=== PATIENT | female | born 1985 | race Hispanic/Latino ===

== ENCOUNTER 2024-03-09 09:02 | Emergency (ER) | payer SELFPAY ==
[2024-03-09 09:09] VITALS: BP 130/91
[2024-03-09 09:24] VITALS: BP 129/84
--- NOTE | 2024-03-09 09:25 | ED.GENMED ---
History of Present Illness
<Yissel Freeman PA-C - Last Filed: 03/09/24 11:43>
General
Chief Complaint: Fainting/Passed Out
Source: patient
Exam Limitations: none
Time Seen by Provider: 03/09/24 09:22
Nursing documentation reviewed up to this point in time: agreed with
Travel History
Have you had any contact with someone who has COVID-19?: No
Do you have any symptoms of coronavirus? Fever > 100 degrees, chills, cough, shortness of breath, sore throat, loss of taste or smell, muscle aches, or headache?: No
History of Present Illness
History of Present Illness:
38-year-old female with no apparent past medical history presents emergency department today via EMS after falling at work today. EMS reports that patient was at work today when she fell and apparently passed out for 30 seconds. EMS reports that
there is a smell of alcohol on her breath and she appears intoxicated. I communicated with patient via sewing teacher. Patient reports that she is here because the left side of her face hurts. Patient reports that she fell 2 days ago and has a small
dale from that, which she tried to cover with make-up. Patient denies alcohol use or illicit drug use. Patient states that her mom this morning and she received a phone call while at work. Patient denies any headache, neck pain,
patient denies any chest pain, shortness of breath. Patient states that she did not lose consciousness. Boyfriend reports that patient used to drink frequently but she has been better recently. Boyfriend expresses concern about ex- giving
her alcohol. Boyfriend reports that she was acting normally this morning when he dropped her off at work patient states that she has no past medical history, she does not take any medications daily. Patient denies any allergies. Patient denies
any pain anywhere else.
Review of Systems
<Yissel Freeman PA-C - Last Filed: 03/09/24 11:43>
Review of Systems
All Other Systems: ROS reviewed and negative except as documented in HPI and ROS
Phy Exam
<Yissel Freeman PA-C - Last Filed: 03/09/24 11:43>
Physical Exam
Physical Exam:
General: Patient appears intoxicated, seen fidgeting and slurring her words.
Skin: Warm and dry, there is a 3 cm abrasion on the left zygomatic process. No jaundice.
Head: See above. No bony tenderness to palpation of the facial bones.
Eyes: Sclera non-icteric. EOMs intact. PERRLA.
Cardiac: Patient is tachycardic otherwise regular rhythm, no murmurs
Peripheral Vascular: No lower extremity swelling or edema
Pulm: Normal respiratory effort
Abdomen: No abdominal tenderness to palpation
Musculoskeletal: No tenderness to palpation of cervical spine. Full ROM of bilateral upper and lower extremities. 5/5 strength in b/l upper and lower extremities.
Neuro: CN II-XII intact, no focal neurologic deficits.
Psychiatric: Anxious affect. Patient crying talking about her mom.
Course
<Yissel Freeman PA-C - Last Filed: 03/09/24 11:43>
Orders/Labs/Results
Orders:
Orders
03/09/24 09:23
CT Head W/o Iv Contrast Urgent
Comment:
Reason For Exam: head trauma following fall
03/09/24 09:25
Alcohol Urgent
Complete Blood Count/With Diff Urgent
Comprehensive Metabolic Panel Urgent
Ferritin Urgent
Comment: ADD
HCG, Serum Qualitative Screen Urgent
Comment: ADD
Iron Urgent
Comment: ADD
Total Iron Binding Urgent
Comment: ADD
03/09/24 09:30
Add On- LAB Urgent
Tests Added?: Beta HCG - qualitative
03/09/24 10:17
0.9% Sodium Chloride 1000 ml [Nss] 1,000 ml IV BOLUS
03/09/24 10:33
Add On- LAB Urgent
Tests Added?: iron panel, ferritin
Abnormal Lab Results
03/09/24
09:25
Hgb 9.3 L g/dL
(12.0-16.0)
Hct 30.6 L %
(37.0-47.0)
MCV 67.0 L fL
(81.0-99.0)
MCH 20.4 L pg
(27.0-31.0)
MCHC 30.4 L g/dL
(33.0-37.0)
RDW 19.6 H %
(11.5-14.5)
Absolute Lymphs (auto) 3.5 H 10^3/uL
(1.2-3.4)
Absolute Monos (auto) 0.7 H 10^3/uL
(0.1-0.6)
Chloride 108 H mmol/L
(98-107)
Creatinine 0.5 L mg/dL
(0.6-1.0)
Glucose 127 H mg/dl
(70-99)
Iron 33 L ug/dl
(37-170)
TIBC 555 H ug/dl
(265-497)
% Saturation 5 L %
(20-50)
AST 40 H U/L
(14-36)
Total Protein 8.3 H g/dl
(6.3-8.2)
03/09/24 09:25
03/09/24 09:25
Vital Signs
Initial and Last Documented VS:
Initial Vital Signs
Temp Pulse Resp BP Pulse Ox
98.5 F 110 16 130/91 98
03/09/24 09:09 03/09/24 09:09 03/09/24 09:09 03/09/24 09:09 03/09/24 09:09
Last Documented Vital Signs
Temp Pulse Resp BP Pulse Ox
98.5 F 95 16 92/55 97
03/09/24 09:09 03/09/24 11:11 03/09/24 11:11 03/09/24 11:11 03/09/24 11:11
<Tj Jolly Karl, DO - Last Filed: 03/09/24 10:45>
Orders/Labs/Results
Orders:
Orders
03/09/24 09:23
CT Head W/o Iv Contrast Urgent
Comment:
Reason For Exam: head trauma following fall
03/09/24 09:25
Alcohol Urgent
Complete Blood Count/With Diff Urgent
Comprehensive Metabolic Panel Urgent
Ferritin Urgent
Comment: ADD
HCG, Serum Qualitative Screen Urgent
Comment: ADD
Iron Urgent
Comment: ADD
Total Iron Binding Urgent
Comment: ADD
03/09/24 09:30
Add On- LAB Urgent
Tests Added?: Beta HCG - qualitative
03/09/24 10:17
0.9% Sodium Chloride 1000 ml [Nss] 1,000 ml IV BOLUS
03/09/24 10:33
Add On- LAB Urgent
Tests Added?: iron panel, ferritin
Abnormal Lab Results
03/09/24
09:25
Hgb 9.3 L g/dL
(12.0-16.0)
Hct 30.6 L %
(37.0-47.0)
MCV 67.0 L fL
(81.0-99.0)
MCH 20.4 L pg
(27.0-31.0)
MCHC 30.4 L g/dL
(33.0-37.0)
RDW 19.6 H %
(11.5-14.5)
Absolute Lymphs (auto) 3.5 H 10^3/uL
(1.2-3.4)
Absolute Monos (auto) 0.7 H 10^3/uL
(0.1-0.6)
Chloride 108 H mmol/L
(98-107)
Creatinine 0.5 L mg/dL
(0.6-1.0)
Glucose 127 H mg/dl
(70-99)
Iron 33 L ug/dl
(37-170)
TIBC 555 H ug/dl
(265-497)
% Saturation 5 L %
(20-50)
AST 40 H U/L
(14-36)
Total Protein 8.3 H g/dl
(6.3-8.2)
03/09/24 09:25
03/09/24 09:25
Vital Signs
Initial and Last Documented VS:
Initial Vital Signs
Temp Pulse Resp BP Pulse Ox
98.5 F 110 16 130/91 98
03/09/24 09:09 03/09/24 09:09 03/09/24 09:09 03/09/24 09:09 03/09/24 09:09
Last Documented Vital Signs
Temp Pulse Resp BP Pulse Ox
98.5 F 95 16 92/55 97
03/09/24 09:09 03/09/24 11:11 03/09/24 11:11 03/09/24 11:11 03/09/24 11:11
Marnielt;Yissel Freeman PA-C - Last Filed: 03/09/24 11:43>
MDM/Problems Addressed
Differential Diagnosis Includes:
Differentials include acute alcohol intoxication, alcohol withdrawal, intraparenchymal hemorrhage, epidural hematoma, vasovagal syncope
MDM/Problems Addressed:
fall, alcohol intoxication
Chronic conditions affecting care:
n/a
Acute Exacerbation and/or Progression of Chronic Illness:
n/a
<Yissel Freeman PA-C - Last Filed: 03/09/24 11:43>
*Critical Care Note
Total Time (30-74mins, 75-104mins- exclusive of procedures): Not Applicable
<Yissel Freeman PA-C - Last Filed: 03/09/24 11:43>
Patient Management
Escalation/DeEscalation of care consider admission/obs:
38-year-old female with no apparent past medical history presents emergency department today via EMS after falling at work today. EMS reports that patient was at work today when she fell and apparently passed out for 30 seconds. EMS reports that
there is a smell of alcohol on her breath and she appears intoxicated. Patient reports that her mom passed recently. Patient denies nausea, vomiting, abdominal pain, visual changes, dark stools, seizures. Boyfriend present who reports that
patient used to have some drinking problems but has been much better recently and will only drink occasionally with her friends. Here in the emergency department, her CBC demonstrates a likely microcytic anemia, boyfriend reports she has had a
history of this in the past and had to take iron supplementation. CBC demonstrates mildly elevated AST, but normal BUN, no concern for upper GI bleed. CT head negative for any acute fracture or dislocation. Patient is medically stable for
discharge at this point, boyfriend here to safely take her home.
ED Attending Note
<Yissel Freeman PA-C - Last Filed: 03/09/24 11:43>
-
Portions of this chart may have been created with voice recognition software.� Occasional wrong word or��sound alike� substitutions may have occurred due to the inherent limitations of voice recognition software.
<Tj Barajas DO - Last Filed: 03/09/24 10:45>
ED Attending Note
Patient seen and examined by attending physician: Yes
I performed the substantive portion of visit, reviewed & personally made and approve the management plan that is documented in note by myself or NIMCO.: Yes
I performed a history and physical exam of patient and discussed management with resident, I reviewed resident's note and agree with documented findings and plan of care.: Yes
ED Attending Note:
Patient does appear intoxicated. Hemoglobin slightly low and iron panel pending. MCV is on the low side. Alcohol level 384. Brain CT unremarkable. Patient denies daily alcohol use.
Discharge Plan
Departure
Patient Disposition: Home (Routine Discharge)
Date of Disposition: 03/09/24
Time of Disposition: 11:35
Patient with high blood pressure during this ER visit?: Yes
Condition: Good
Discharge Problem:
Alcohol intoxication, Fall
Instructions: Anemia caused by low iron, Alcohol use - when is drinking a problem?, BLOOD PRESSURE
Referrals:
NONE,* [Family Provider] -
Activity Restrictions/Additional Instructions:
Your CT scan here was negative for any acute fracture or dislocation. Your lab work demonstrates anemia, you may want to consider starting iron supplementation, please see your primary care provider to follow-up on this.
Please return to the emergency department should you experience chest pain, shortness of breath, confusion, seizure like activity, visual changes, hallucinations, syncopal episodes, dark tarry stools, fevers or chills, abdominal pain, or any other
concerning signs or symptoms.
Interventions
Interventions:
*Risk Screen - Suicide Last Done: 03/09/24 09:16
*General Assessment Last Done: 03/09/24 09:15
*Neglect/Abuse Screening Last Done: 03/09/24 09:16
*ED COVID-19 Vaccine History Last Done: 03/09/24 09:15
ED- Cardiac Assessment Last Done: 03/09/24 09:21
ED- Neurological Assessment Last Done: 03/09/24 09:21
Discharge Date and Time
Print Language: SLOVENIAN
[2024-03-09 09:38] LABS: % Basophils 0.9 % (0-2); % Eosinophils 2.8 % (0-6); % Immature Granulocytes 0.3 % (0-0.5); % Monocytes 8.8 % (1.7-9.3); % Neutrophils 42.2 % (42.2-75.2); Absolute Basophils 0.1 10^3/uL (0-0.2); Absolute Eosinophils 0.2 10^3/uL (0-0.7); Absolute Lymphocytes 3.5 10^3/uL (1.2-3.4); Absolute Monocytes 0.7 10^3/uL (0.1-0.6); Absolute Neutrophils 3.3 10^3/uL (1.4-6.5); Hematocrit 30.6 % (37.0-47.0); Hemoglobin 9.3 g/dL (12.0-16.0); Mean Corp Hgb Conc. 30.4 g/dL (33.0-37.0); Mean Corpuscular Hgb 20.4 pg (27.0-31.0); Nucleated Red Blood Cells % 0 %; Platelet Count 216 10^3/uL (130-400); Red Blood Cell Count 4.57 10^6/uL (4.20-5.40); Red Cell Dist. Width 19.6 % (11.5-14.5); White Blood Cell Count 7.9 10^3/uL (4.8-10.8)
[2024-03-09 09:48] LABS: ALT (SGPT) 24 U/L (0-35); AST (SGOT) 40 U/L (14-36); Albumin 4.6 g/dl (3.5-5.0); Alkaline Phosphatase 90 U/L (38-126); Blood Urea Nitrogen 9 mg/dl (7-17); Calcium 8.9 mg/dl (8.4-10.2); Carbon Dioxide 22 mmol/L (22-30); Chloride 108 mmol/L (98-107); Glucose 127 mg/dl (70-99); Potassium 3.9 mmol/L (3.5-5.1); Sodium 145 mmol/L (135-145); Total Bilirubin 0.4 mg/dl (0.2-1.3); Total Protein 8.3 g/dl (6.3-8.2); eGFR > 60.00
[2024-03-09 10:15] LABS: Alcohol 384 mg/dl
[2024-03-09] MEDS: NSS 1000 IV (10:19)
[2024-03-09 10:31] LABS: HCG, Serum Qualitative Screen Negative
[2024-03-09 11:03] LABS: Iron 33 ug/dl (37-170)
[2024-03-09 11:11] VITALS: BP 92/55
[2024-03-09 11:12] LABS: Percent Saturation 5 % (20-50); Total Iron Binding Capacity 555 ug/dl (265-497)
[2024-03-09 11:53] VITALS: BP 115/80
[2024-03-09 12:15] LABS: Ferritin 9.4 ng/ml (6.24-137)
== END 2024-03-09 11:59 | disposition home or self-care (01) ==
LOC: EMR 09:02
PROVIDERS: Physician Assistant; EMERGENCY PHYSICIAN Emergency Medicine
DX: F10.129 Alcohol abuse with intoxication, unspecified (principal); S09.90XA Unspecified injury of head, initial encounter; W19.XXXA Unspecified fall, initial encounter; Y90.8 Blood alcohol level of 240 mg/100 ml or more
CPT/HCPCS: 99284; 96360; 96361; 70450; 80053; 82077; 82728; 83540; 83550; 84703; 85025

== ENCOUNTER 2024-11-15 22:26 | Emergency (ER) | payer SELFPAY ==
[2024-11-15 22:32] VITALS: BP 143/103
[2024-11-15 22:54] LABS: % Basophils 0.4 % (0-2); % Eosinophils 0.2 % (0-6); % Immature Granulocytes 0.4 % (0-0.5); % Lymphocytes 35.4 % (20.5-51.1); % Monocytes 4.7 % (1.7-9.3); % Neutrophils 58.9 % (42.2-75.2); Absolute Basophils 0.1 10^3/uL (0-0.2); Absolute Immature Granulocytes 0.1 10^3/uL (0-0.05); Absolute Lymphocytes 4.8 10^3/uL (1.2-3.4); Absolute Monocytes 0.6 10^3/uL (0.1-0.6); Absolute Neutrophils 7.9 10^3/uL (1.4-6.5); Hematocrit 35.9 % (37.0-47.0); Hemoglobin 11.1 g/dL (12.0-16.0); Mean Corp Hgb Conc. 30.9 g/dL (33.0-37.0); Mean Corpuscular Hgb 21.3 pg (27.0-31.0); Mean Platelet Volume 9.4 fL (7.4-10.4); Nucleated Red Blood Cells % 0 %; Platelet Count 404 10^3/uL (130-400); Red Cell Dist. Width 19.1 % (11.5-14.5); White Blood Cell Count 13.5 10^3/uL (4.8-10.8)
[2024-11-15 23:04] LABS: Glucose - Point of Care 125 mg/dl (70-99)
[2024-11-15 23:08] LABS: HCG, Serum Qualitative Screen Negative
[2024-11-15 23:12] LABS: ALT (SGPT) 23 U/L (0-35); AST (SGOT) 34 U/L (14-36); Albumin 4.9 g/dl (3.5-5.0); Alkaline Phosphatase 108 U/L (38-126); Blood Urea Nitrogen 11 mg/dl (7-17); Calcium 9.6 mg/dl (8.4-10.2); Carbon Dioxide 18 mmol/L (22-30); Chloride 108 mmol/L (98-107); Glucose 152 mg/dl (70-99); Potassium 4.4 mmol/L (3.5-5.1); Sodium 145 mmol/L (135-145); Total Bilirubin 0.4 mg/dl (0.2-1.3); Total Protein 8.8 g/dl (6.3-8.2); eGFR > 60.00
[2024-11-15 23:25] VITALS: BP 108/86
[2024-11-15 23:26] LABS: Alcohol 458 mg/dl
--- NOTE | 2024-11-15 23:33 | ED.GENMED ---
History of Present Illness
General
Chief Complaint: Alcohol Problem
Source: patient and ambulance crew
Exam Limitations: clinical condition
Time Seen by Provider: 11/15/24 22:55
History of Present Illness
History of Present Illness:
39-year-old female was reportedly found outside of a local restaurant. The patient reportedly works at the restaurant. Boyfriend states that he typically picks her up. He does state that she drinks [place] at home. Reportedly she was drinking some
at work. Staff found her outside in the cold. She was out there for about an hour. Patient appears heavily intoxicated on arrival.
Past History
Past History
ED Past Medical History: Other (Unknown)
Phy Exam
Physical Exam
Physical Exam:
CONSTITUTIONAL Patient alert but intoxicated. Vital signs reviewed.
HEAD left forehead abrasion
EYES eyelids normal to inspection, Extraocular muscles intact, Conjunctiva normal, Sclera normal.
NECK normal range of motion, Trachea midline, no jugular venous distention.
RESPIRATORY CHEST No respiratory distress noted, Chest expansion equal
ABDOMEN abdomen nontender, Bowel sounds normal. No distention.
BACK normal inspection, no obvious deformities
UPPER EXTREMITY range of motion normal, Motor strength normal, no cyanosis, no edema.
LOWER EXTREMITY range of motion normal, Motor strength normal, no cyanosis, no edema.
NEURO Speech slurred, No focal motor deficits,Cranial Nerves intact to screening exam.
Course
Orders/Labs/Results
Orders:
Orders
11/15/24 22:45
EKG [Electrocardiogram (*1)] Urgent
Reason for Study: Syncope
EKG- Treatment ONCE
11/15/24 22:47
CT Head W/o Iv Contrast Urgent
Comment:
Reason For Exam: hit head drunk
Test Result ONCE
11/15/24 22:48
Alcohol Urgent
Complete Blood Count/With Diff Urgent
Comprehensive Metabolic Panel Urgent
HCG, Serum Qualitative Screen Urgent
11/15/24 22:51
CT Cervical Spine W/o Iv Contr Urgent
Comment: wrong order entered by RN
Reason For Exam: head strike drunk
11/15/24 22:57
Urine Drug Abuse Screen Urgent
Date Specimen was Collected: 11/15/24
Time Specimen was Collected: 22:57
Abnormal Lab Results
11/15/24 11/15/24
22:48 23:02
WBC 13.5 H 10^3/uL
(4.8-10.8)
Hgb 11.1 L g/dL
(12.0-16.0)
Hct 35.9 L %
(37.0-47.0)
MCV 69.0 L fL
(81.0-99.0)
MCH 21.3 L pg
(27.0-31.0)
MCHC 30.9 L g/dL
(33.0-37.0)
RDW 19.1 H %
(11.5-14.5)
Plt Count 404 H 10^3/uL
(130-400)
Abs Immat Gran (auto) 0.1 H 10^3/uL
(0-0.05)
Absolute Neuts (auto) 7.9 H 10^3/uL
(1.4-6.5)
Absolute Lymphs (auto) 4.8 H 10^3/uL
(1.2-3.4)
Chloride 108 H mmol/L
(98-107)
Carbon Dioxide 18 L mmol/L
(22-30)
Creatinine 0.5 L mg/dL
(0.6-1.0)
Glucose 152 H mg/dl
(70-99)
Total Protein 8.8 H g/dl
(6.3-8.2)
Alcohol, Quantitative 458 H* mg/dl
POC Glucose 125 H mg/dl
(70-99)
11/15/24 22:48
11/15/24 22:48
Vital Signs
Initial and Last Documented VS:
Initial Vital Signs
Temp BP
97.4 F 143/103
11/15/24 22:32 11/15/24 22:32
Last Documented Vital Signs
Temp Pulse Resp BP Pulse Ox
98.5 F 132 14 117/87 97
11/16/24 01:00 11/16/24 02:00 11/16/24 02:00 11/16/24 02:00 11/16/24 00:30
MDM/Problems Addressed
MDM/Problems Addressed:
Acute severe alcohol intoxication, head injury
*Radiology
Radiology exam reviewed: preliminary read by ED provider (No obvious intracranial hemorrhage)
*Pulse Oximetry
Patient hypoxic: no
*Critical Care Note
Total Time (30-74mins, 75-104mins- exclusive of procedures): Not Applicable
Data Reviewed
Source: patient and significant other (Boyfriend adds that he thinks she was actually outside longer than was initially reported by EMS.)
Patient Management
Escalation/DeEscalation of care consider admission/obs:
Continue to observe. Patient resting comfortably. Temperature okay but given warm blankets and may place Scooter hugger just to keep her warm while she arvind up. Boyfriend will return with close. CT negative
ED Attending Note
-
Portions of this chart may have been created with voice recognition software.� Occasional wrong word or��sound alike� substitutions may have occurred due to the inherent limitations of voice recognition software.
Discharge Plan
Departure
Patient with high blood pressure during this ER visit?: No
Discharge Problem:
Acute alcohol intoxication
Instructions: Alcohol intoxication - ED discharge instructions, Head injury in adults
Referrals:
NONE,* [Family Provider] -
Activity Restrictions/Additional Instructions:
Please stop drinking alcohol! Return immediately for intractable vomiting, changes in mentation or any other concerns. Keep wound clean and dry
Interventions
Interventions:
*Risk Screen - Suicide Last Done: 11/15/24 22:32
*General Assessment Last Done: 11/15/24 22:32
*Neglect/Abuse Screening Last Done: 11/15/24 22:32
*ED COVID-19 Vaccine History Last Done: 11/15/24 22:32
ED- Neurological Assessment Last Done: 11/15/24 22:32
ED-Psychological Assessment Last Done: 11/15/24 22:32
Discharge Date and Time
Print Language: MOZAMBICAN
[2024-11-16] VITALS: BP 123/82
[2024-11-16 00:42] LABS: Amphetamines Negative (Negative); Barbiturates Negative (Negative); Benzodiazepines Negative (Negative); Buprenorphine Negative (Negative); Cocaine Negative (Negative); Marijuana Negative (Negative); Methadone Negative (Negative); Methamphetamines Negative (Negative); Opiates Negative (Negative); Phencyclidine Negative (Negative); Tricyclic Antidepressants Negative (Negative)
[2024-11-16 01:00] VITALS: BP 122/87
[2024-11-16 02:00] VITALS: BP 117/87
[2024-11-16 03:00] VITALS: BP 122/87
== END 2024-11-16 03:53 | disposition home or self-care (01) ==
LOC: EMR 22:26
PROVIDERS: EMERGENCY PHYSICIAN Emergency Medicine
DX: F10.129 Alcohol abuse with intoxication, unspecified (principal); S09.90XA Unspecified injury of head, initial encounter; X58.XXXA Exposure to other specified factors, initial encounter
CPT/HCPCS: 99284; 70450; 72125; 80053; 80306; 82077; 82962; 84703; 85025; 93005